=== PATIENT | male | born 1995 | race Two or more races ===

== ENCOUNTER 2021-10-02 19:18 | Emergency (ER) | payer MEDICAID ==
[~2021-10-02] VITALS: Ht 172.7 cm; Wt 99.8 kg
[2021-10-02 20:39] VITALS: BP 124/70
--- NOTE | 2021-10-02 20:40 | NUR ---
URINE COLLECTED AND SENT TO LAB
== END 2021-10-02 22:19 | disposition home or self-care (01) ==
LOC: ER 19:23
DX: K52.9 Noninfective gastroenteritis and colitis, unspecified (principal); R51.9 Headache, unspecified